=== PATIENT | male | born 1950 | race Caucasian/White ===

== ENCOUNTER → 2024-01-14 | Outpatient (CLI) | payer MEDICARE ==
--- NOTE | 2024-01-14 20:45 | US ---
EXAMINATION TYPE: US kidneys/renal and bladder DATE OF EXAM: 01/14/2024 COMPARISON: NONE CLINICAL INDICATION: Male, 73 years old with history of R31.9 HEMATURIA, UNSPECIFIED; Frequent urinat ion EXAM MEASUREMENTS: Right Kidney: 9.5 x 4.9 x 4.2 cm Left Kidney: 10.1 x 4.7 x 5.8 cm Post Void Residual Volume: 74.9 mL Right Kidney: No hydronephrosis or masses seen Left Kidney: No hydronephrosis or masses seen Bladder: wnl Bilateral Jets seen: Yes Normal Post Void Residual: No small post void residual of 75 cc. Which can be associated with outle t obstruction, chronic bladder infection or enlarged prostate. There is no evidence for hydronephrosis at this point in time. No nephrolithiasis is seen. No alfonso s are identified. The urinary bladder is anechoic. Bilateral ureteral jets are seen. Renal cortical echogenicity and thickness normal bilaterally. IMPRESSION: 1. There is a small post void residual.
== END | disposition home or self-care (01) ==
LOC: RADUSWWP 15:30
PROVIDERS: ATTEND Family Medicine
DX: R31.9 Hematuria, unspecified (principal); R35.0 Frequency of micturition
CPT/HCPCS: 76770

== ENCOUNTER → 2024-09-04 | Outpatient (CLI) | payer MEDICARE ==
--- NOTE | 2024-09-04 13:58 | US ---
EXAMINATION TYPE: US venous doppler duplex LE BI DATE OF EXAM: 09/04/2024 1:24 PM COMPARISON: NONE CLINICAL INDICATION: Male, 73 years old with history of I82.419 ACUTE EMBOLISM AND THROMBOSIS OF UNSP ECIFI; rt upper thigh pain x 3 days, Pain TECHNIQUE: The lower extremity deep venous system is examined utilizing real time linear array sonog yoselin with graded compression, color doppler sonography, and spectral doppler. SIDE PERFORMED: Bilateral FINDINGS: VESSELS IMAGED: Common Femoral Vein Deep Femoral Vein Greater Saphenous Vein * Femoral Vein Popliteal Vein Small Saphenous Vein * Proximal Calf Veins (* superficial vessels) Right Leg: Negative for DVT, Color Doppler imaging shows patency of the vessels. Spectral waveforms are within normal limits. Left Leg: Negative for DVT, Color Doppler imaging shows patency of the vessels. Spectral waveforms a re within normal limits. exam limited by edema and habitus IMPRESSION: No ultrasound evidence for deep venous thrombosis. [facility], , 09/04/2024 1:55 PM
== END | disposition home or self-care (01) ==
LOC: RADUSWWP 12:45
PROVIDERS: ATTEND Family Medicine
DX: I82.413 Acute embolism and thrombosis of femoral vein, bilateral (principal)
CPT/HCPCS: 93970